=== PATIENT | male | born 1985 | race Caucasian/White ===

== ENCOUNTER → 2018-10-05 10:36 | Outpatient (POV) | payer OTHER, MEDICARE, SELFPAY ==
[2018-10-05 11:01] VITALS: BP 126/81; PULSE 131; RESP 18; O2SAT 99
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
== END ==
PROVIDERS: Visit Provider Clinical Nurse Specialist Family Health
DX: G90.511 Complex regional pain syndrome I of right upper limb (principal); M96.1 Postlaminectomy syndrome, not elsewhere classified
CPT/HCPCS: 99202

== ENCOUNTER → 2018-11-02 12:45 | Outpatient (POV) | payer OTHER, MEDICARE, SELFPAY ==
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
[2018-11-02 12:57] VITALS: BP 129/65; PULSE 87; RESP 18; O2SAT 99; BMI 27.7
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
== END ==
PROVIDERS: Visit Provider Clinical Nurse Specialist Family Health
DX: G90.511 Complex regional pain syndrome I of right upper limb (principal); M96.1 Postlaminectomy syndrome, not elsewhere classified
CPT/HCPCS: 99213